=== PATIENT | male | born 1995 | race American Indian/Alaskan Native ===

== ENCOUNTER → 2016-07-26 | Day surgery (SDC) | payer BC ==
[2016-07-23 09:18] VITALS: Ht 174 cm; Wt 75.0 kg
[~2016-07-26] VITALS: Ht 174 cm; Wt 75.0 kg
[~2016-07-26] MED LIST: ATROPINE SULFATE 0.1 MG/ML 5ML SYR IV PRN; BUPIVACAINE/EPINEPHRINE 0.5% MPF 1:200,000 30 ML VIAL ONE; CEFAZOLIN 2000 MG/60 ML D5W IV SCH; DEXAMETHASONE SOD INJ 4 MG/ML VIAL ONE; EpHEDrine SULFATE INJ 50 MG/ML AMP IV PRN; EpINEphrine INJ 1MG/ML AMP 1 MG/ML AMP ONE; FENTANYL CITRATE INJ 50 MCG/1 ML 2 ML VIAL IV PRN; FENTANYL CITRATE INJ 50 MCG/1 ML 2 ML VIAL ONE; GLYCOPYRROLATE INJ 0.2 MG/ML VIAL ONE; HYDROmorphone INJ 1 MG/ML SYR IV PRN; LACTATED RINGER'S 1000ML 1,000 ML IV SCH; LIDOCAINE HCL 1% 20 ML VIAL ONE; LIDOCAINE HCL 2% 2 ML VIAL (20MG/ML) ONE; METOCLOPRAMIDE HCL INJ 5 MG/ML 2 ML VIAL IV PRN; MIDAZOLAM HCL 1 MG/ML 2ML VIAL ONE; MoRPHine SULFATE 4 MG/ML 1 ML CARP\\VIAL IV PRN; NEOSTIGMINE METHYLSULFATE 5 MG/5 ML SYR ONE; ONDANSETRON 8 MG TAB PO ONE; ONDANSETRON 8MG OD TAB ONE; ONDANSETRON INJ 2 MG/ML 2 ML VIAL IV PRN; ONDANSETRON INJ 2 MG/ML 2 ML VIAL ONE; OXYCODONE/ACETAMINOPHEN 5-325 TAB PO PRN; PROMETHAZINE HCL INJ 12.5 MG in SODIUM CHLORIDE 0.9% 50ML 50 ML IV PRN; PROPOFOL IV EMULSION 10 MG/ML 20 ML VIAL IV ONE; ROCURONIUM BROMIDE 10 MG/ML 5 ML VIAL ONE; ROPIVACAINE 0.5% 5 MG/ML 30 ML VIAL ONE; SODIUM CHLORIDE 0.9% 1000ML 1,000 ML IV SCH
--- NOTE | 2016-07-26 09:04 | History & Physical Bridge - [place] ---
H&P Re-Evaluation Bridge Note: I have examined the patient, reviewed the History & Physical and in the interval since the performance of the History & Physical I have noted the following changes of clinical significance: No changes noted
--- NOTE | 2016-07-26 14:20 | [facility] Post Operative Brief Note ---
Immediate Operative Summary Operative Date Jul 26, 2016. Pre-Operative Diagnosis Left Shoulder Recurrent Instability Post-Operative Diagnosis Left shoulder, anterior labral tear, Loose Body Procedure(s) Performed Left shoulder arthroscopy, anterior labral repair, exam under anesthesia Surgeon Dr. Lorena Romero Tv [employer] Director Surgeon(s) Lorena Babb Findings same Specimens none Drains none Anesthesia general, block Complication(s) None Disposition Recovery Room / PACU
--- NOTE | 2016-07-26 14:21 | Discharge Instructions-SurgCtr ---
Discharge Instructions Date of Service Jul 26, 2016. Visit Reason for Visit: Left Shoulder Recurrent Instability Discharge Discharge Diagnosis / Problem: Left shoulder, anterior labral tear Discharge Goals Goal(s): Decrease discomfort, Improve function, Increase independence Activity Recommendations Activity Limitations: as noted below Lifting Limitations: none Exercise/Sports Limitations: none Shower/Bathe: keep incision dry Driving or Machine Use: when cleared by Dr. Romero Anesthesia . Post Anesthesia Instructions: If you have had General Anesthesia or IV Sedation: * Do not drive today. * Resume driving when surgeon permits. * Do not make important decisions or sign legal documents today. * Call surgeon for: 1. Temperature elevations greater than 101 degrees F. 2. Uncontrollable pain. 3. Excessive bleeding. 4. Persistent nausea and vomiting. 5. Medication intolerance (nausea, vomiting or rash). * For nausea and vomiting use only clear liquids such as: tea, soda, bouillon until nausea subsides, then gradually increase diet as tolerated. * If you have any concerns or questions, call your surgeon's office. If physician is unavailable and it is an emergency, call 911 or go to the nearest emergency room. . Instructions / Follow-Up Instructions / Follow-Up DIET: * Resume previous diet. MEDICATIONS: * Please take your prescriptions as instructed at your pre-op appointment and/ or see medication discharge instructions listed above. * If concerns develop, call your physician's office at . SPECIAL CARE INSTRUCTIONS: * Ice/Elevate as instructed. * Keep dressing clean, dry, intact. * Your surgical extremity may be discolored due to prepping agents used on the skin. A bluish-green tint is a normal variant and should not cause alarm. Call your doctor at [phone] if: * Temperature above 101 degrees * Pain not relieved by pain medicine ordered * There is increased drainage or redness from any incision * You have any unanswered questions, problems or concerns. FOLLOW UP VISIT: * If not already scheduled, please call the office at to schedule a follow-up appointment. Diet Recommendations Home Diet: resume previous diet Procedures Procedures Performed: Left shoulder arthroscopy, anterior labral repair, exam under anesthesia Pending Studies Studies pending at discharge: no Medical Emergencies . Who to Call and When: Medical Emergencies: If at any time you feel your situation is an emergency, please call 911 immediately. . Non-Emergent Contact Non-Emergency issues call your: Primary Care Provider . . "Provider Documentation" section prepared by Marcus Helm. [place] Drug Monitoring Program Search Results: no issues identified
--- NOTE | 2016-07-26 14:38 | [facility] Operative Report ---
Operative Report Operative Date Jul 26, 2016. Pre-Operative Diagnosis Left Shoulder Recurrent Instability Post-Operative Diagnosis same with loose bodies Procedure(s) Performed 1) Left Shoulder Arthroscopic Anterior Labral repair. 2) Loose bodies removal. 3) Exam Under Anesthesia. Surgeon Dr. Lorena Romero Lead Cytogenetic Technologist Surgeon(s) Lorena Babb Estimated Blood Loss 6 ml Findings The left shoulder was then examined under anesthesia and it exhibited: Forward flexion and abduction to[ 170]; external rotation 100; internal rotation 85. There was no noted instability. Posterior and anterior translation was 1+ and they had no sulcus sign and was symmetric to their other side. The diagnostic arthroscopy commenced with the following findings: 1. The biceps anchor was intact. 2. The anterior labrum was torn from 7:00 to 11:00. There were multiple loose bodies. 3. The inferior labrum was intact. 4. The inferior pouch showed no loose bodies. 5. The posterior labrum was intact. 6. The articular surface of the glenoid was damaged with loss of articular cartilage from 8:30 to 9:30 position. 7. The articular surface of humeral head was normal. 8. The long Head of the Biceps was normal. 9. The Subscapularis tendon was normal, with a couple of redundant fibers. 10. The Supraspinatus tendon was normal. 11. The Infraspinatus and Teres Minor were normal. 12. The Subacromial space showed adequate space and no bursitis. Fluids (cc crystalloids) 1300 Specimens 0 Drains n/a Anesthesia GET + interscalene Nerve block Complication(s) None Disposition Recovery Room / PACU (Stable) Implants 1) 1.5 mm JuggerKnot (Biomet). 2) 2.9 x 12.5 mm Pushlock with LabralTape x 3 (Arthrex). 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 They have MRI and clinical findings suggestive of anterior labral tear. After a lengthy discussion regarding their options of conservative versus operative management, they have elected to proceed with surgery. The risks of surgery were discussed and include but not limited to: Infection, bleeding, nerve damage, continued pain, progression of arthritis, stiffness, decreased level of activity, and deep vein thrombosis. The patient understood all of their options and the risks of surgery and would like to proceed. The informed consent was signed. Description of Procedure The patient was taken to the operating room and following administration of her interscalene nerve block and general anesthetic, a multidisciplinary time-out was performed identifying my initials on the left shoulder as the correct and operative limb. The patient was then placed in lateral decubitus position with all of their bony prominences well-padded and an axillary roll. They were then prepped and draped in the usual orthopedic sterile fashion with 10 pounds of traction. All of the bony landmarks were marked as well as the planned incisions. The planned incisions were injected with a 50:50 mixture of 0.5% Marcaine plain and 1% Lidocaine with Epinephrine for a total of 8 cc. Then using a spinal needle which was placed intra-articularly into the glenohumeral joint and insufflated to 35 cc and there was noted appropriate back flow, an additional 15 cc were placed. The standard posterior portal was made with an 11-blade. Trocar was introduced into the glenohumeral joint in the standard fashion. Using a spinal needle, the anterior portal was placed lateral to the coracoid under direct visualization between the Long Head of the Biceps and Subscapularis. A 7mm cannula was then placed. The intra-articular portion of shoulder was addressed first with removal of any loose bodies with combination of mechanical shaver, outflow cannula, and grasper. The loose articular cartilage on the anterior aspect of the glenoid was debrided with mechanical shaver. There was small full-thickness loss from approximately 8:30 to 9:30. The remaining labrum and capsule were elevated off the glenoid neck in the standard fashion. The glenoid neck was prepared with mechanical shaver and Mic rasp. A 5:00 accessory portal was made with a small stab incision with the Arthrex percutaneous kit that initially was placed trans-subscapular and later repositioned more superiorly for additional anchor placement. The most inferior anchor placed at 7:30 utilized the curved JuggerKnot. Arthroscopic not tying was performed. Then 3 sequential PushLocks after passing LabralTape were placed at 8:30, 9:30, and 10:30 positions. The anterior labrum was then probed and found to be stable. The arthroscope had also been removed from the posterior portal and placed anteriorly for better posterior visualization. The arthroscope was then placed subacromially. There was no bursitis noted. All of the instruments were removed. The traction was taken off. The portal sites were closed with 3-0 Prolene in a standard fashion. Xeroform was placed overtop followed by 4 x 4's, ABDs, and foam tape. The patient was placed in a sling. The sponge and needle counts were correct. POSTOPERATIVE INSTRUCTIONS: The patient will follow-up with physical therapy in two days. The patient will wear sling for 4 weeks. The patient will follow-up with me in 10 to 15 days. I attest to the content of the Intraoperative Record and any orders documented therein. Any exceptions are noted below.
[2016-07-26 16:40] VITALS: BP 118/76; PULSE 64; TEMP 36.6; O2SAT 97
--- NOTE | 2016-07-26 16:41 | Anesthesia Progress Nt - [facility] ---
Anesthesia Post Op Note Date & Time Jul 26, 2016 at 16:40 Vital Signs Pain Intensity: 0 Vital Signs Past 12 Hours Date Time Temp Pulse Resp B/P Pulse Ox O2 Delivery O2 Flow Rate FiO2 07/26/16 15:44 36.6 64 16 124/76 98 Room Air 07/26/16 15:43 36.6 07/26/16 15:39 94 19 07/26/16 15:39 88 19 98 07/26/16 15:35 127/73 07/26/16 15:34 60 19 07/26/16 15:34 56 19 98 07/26/16 15:30 127/64 07/26/16 15:30 Room Air 07/26/16 15:29 45 18 07/26/16 15:29 44 18 100 07/26/16 15:25 125/66 07/26/16 15:24 49 19 07/26/16 15:24 48 19 100 07/26/16 15:20 118/60 07/26/16 15:19 47 18 07/26/16 15:19 47 18 100 07/26/16 15:15 128/65 07/26/16 15:14 61 20 100 07/26/16 15:14 56 20 07/26/16 15:10 119/66 07/26/16 15:09 46 19 100 07/26/16 15:09 46 19 07/26/16 15:05 131/66 07/26/16 15:04 41 21 100 07/26/16 15:04 42 21 07/26/16 15:02 131/74 07/26/16 14:51 134/81 07/26/16 14:49 36.4 47 20 134/81 100 Diffusion Mask 6 07/26/16 11:24 52 07/26/16 11:24 52 34 100 07/26/16 11:20 141/66 07/26/16 11:19 62 07/26/16 11:19 59 36 100 07/26/16 11:18 47 07/26/16 11:18 47 23 100 07/26/16 11:15 129/68 07/26/16 11:13 58 29 100 07/26/16 11:13 55 07/26/16 11:12 54 07/26/16 11:12 48 22 100 07/26/16 11:11 127/75 07/26/16 11:07 45 07/26/16 11:07 44 18 100 07/26/16 11:06 52 07/26/16 11:06 52 23 100 07/26/16 11:05 136/62 07/26/16 11:01 53 07/26/16 11:01 53 22 100 07/26/16 11:00 136/63 07/26/16 10:56 47 28 100 07/26/16 10:56 50 07/26/16 10:55 69 21 149/78 100 07/26/16 10:55 70 127/75 07/26/16 08:33 36.5 49 20 121/60 98 Room Air Notes Mental Status: alert / awake / arousable, participated in evaluation Pt Amnestic to Procedure: Yes Nausea / Vomiting: adequately controlled Pain: adequately controlled Airway Patency, RR, SpO2: stable & adequate BP & HR: stable & adequate Hydration State: stable & adequate Anesthetic Complications: no major complications apparent
== END | disposition home or self-care (01) ==
LOC: X.SURG 08:22
PROVIDERS: ATTEND Orthopaedic Surgery Sports Medicine
DX: M25.312 Other instability, left shoulder (principal); M24.012 Loose body in left shoulder; Z68.25 Body mass index [BMI] 25.0-25.9, adult